=== PATIENT | male | born 1985 | race Caucasian/White ===

== ENCOUNTER 2018-05-09 18:05 | Emergency (ER) | payer OTHER ==
[2018-05-09] MEDS: LIDOCAINE 1% MDV 20ML VIAL IM (20:00)
[2018-05-09] MEDS: ADACEL/BOOSTRIX VACCINE (DIPHTH/PERTUSS/ACELL/TETANUS)0.5ML SYR (90715) IM (20:07)
== END 2018-05-09 20:25 | disposition home or self-care (01) ==
LOC: M ED 18:05
DX: S61.402A Unspecified open wound of left hand, initial encounter (principal); W18.02XA Striking against glass with subsequent fall, initial encounter; Y92.019 Unspecified place in single-family (private) house as the place of occurrence of the external cause
CPT/HCPCS: 90715